=== PATIENT | male | born 1960 | race Caucasian/White ===

== ENCOUNTER 2020-07-08 08:26 | Outpatient (REF) | payer OTHER, SELFPAY ==
[2020-07-08 11:12] LABS: MANUAL DIFF FLAG NO
[2020-07-08 11:30] LABS: Basophils Percent Auto 0.5 % (0-2); Eosinophils Absolute Auto 0.2 X10*3/uL (0.0-0.4); Eosinophils Percent Auto 2.4 % (0-4); Hematocrit 46.2 % (42-52); Hemoglobin 15.6 g/dl (14.0-18.0); Imm Gran Abs Auto 0.03 X10*3/uL (0.00-0.03); Imm Gran Pct Auto 0.4 % (0.0-0.4); Lymphocytes Absolute Auto 2.2 X10*3/uL (1.2-4.9); Lymphocytes Percent Auto 29.5 % (20-40); Mean Corpuscular HGB Conc 33.8 g/dl (31.0-36.0); Mean Corpuscular Hemoglobin 29.9 pg (27.0-33.0); Mean Corpuscular Volume 88.5 fL (80-98); Mean Platelet Volume 9.9 fL (9.4-12.4); Monocytes Absolute Auto 0.5 X10*3/uL (0.1-1.2); Monocytes Percent Auto 7.2 % (2-11); Neutrophils Absolute Auto 4.5 X10*3/uL (2.0-8.3); Platelet Count 246 X10*3/uL (160-400); Red Blood Count 5.22 X10*6/uL (4.60-5.80); Red Cell Distribution Width 12.4 % (11.0-16.0); White Blood Count 7.5 X10*3/uL (4.8-10.8)
[2020-07-08 11:48] LABS: Alanine Aminotransferase 31 U/L (0-40); Albumin Level 4.6 g/dL (3.5-5.0); Alkaline Phosphatase 57 U/L (39-117); Anion Gap 18 (12-20); Aspartate Amino Transferase 28 U/L (5-37); Bilirubin Total 0.9 mg/dL (0.0-1.0); Blood Urea Nitrogen 13 mg/dL (9-16); Calcium 9.3 mg/dL (8.4-10.2); Carbon Dioxide 24 mmol/L (22-29); Chloride 99 mmol/L (96-108); Cholesterol 182 mg/dL; Estimated Glomerular Filt Rate > 60; Glucose Fasting 101 mg/dL (60-99); HDL Cholesterol 42 mg/dL; LDL Cholesterol Calculated 104 mg/dl; Potassium 4.2 mmol/l (3.3-5.1); Sodium 137 mmol/L (135-145); Total Protein 7.6 g/dL (6.5-8.0); Triglycerides 183 mg/dL; Uric Acid 7.2 mg/dL (3.4-7.0)
[2020-07-08 12:09] LABS: PSA,Total (Free>4and<10) 1.41 ng/mL (0.00-4.00)
== END 2020-07-08 08:27 | disposition home or self-care (01) ==
LOC: HO.HMGCLDS 08:26
PROVIDERS: PCP Internal Medicine; Visit Provider Internal Medicine
DX: Z00.00 Encounter for general adult medical examination without abnormal findings (principal); Z12.5 Encounter for screening for malignant neoplasm of prostate
CPT/HCPCS: 36415; 80053; 80061; 84153; 84550; 85025

== ENCOUNTER 2021-09-29 08:38 | Outpatient (REF) | payer OTHER, SELFPAY ==
[2021-09-29 11:47] LABS: MANUAL DIFF FLAG NO
[2021-09-29 11:56] LABS: Basophils Absolute Auto 0.1 X10*3/uL (0.0-0.2); Basophils Percent Auto 0.6 % (0-2); Eosinophils Absolute Auto 0.2 X10*3/uL (0.0-0.4); Eosinophils Percent Auto 1.7 % (0-4); Hematocrit 45.5 % (42.0-52.0); Hemoglobin 15.8 g/dl (14.0-18.0); Imm Gran Abs Auto 0.18 X10*3/uL (0.00-0.03); Imm Gran Pct Auto 1.6 % (0.0-0.4); Lymphocytes Absolute Auto 2.7 X10*3/uL (1.2-4.9); Mean Corpuscular HGB Conc 34.7 g/dl (31.0-36.0); Mean Corpuscular Hemoglobin 30.3 pg (27.0-33.0); Mean Corpuscular Volume 87.2 fL (80.0-98.0); Mean Platelet Volume 9.8 fL (9.4-12.4); Monocytes Absolute Auto 0.8 X10*3/uL (0.1-1.2); Monocytes Percent Auto 6.7 % (2-11); Neutrophils Absolute Auto 7.5 x10*3/uL (2.0-8.3); Neutrophils Percent Auto 65.4 % (45-73); Platelet Count 267 X10*3/uL (160-400); Red Blood Count 5.22 X10*6/uL (4.60-5.80); Red Cell Distribution Width 12.4 % (11.0-16.0); White Blood Count 11.4 X10*3/uL (4.8-10.8)
[2021-09-29 12:29] LABS: Alanine Aminotransferase 30 U/L (0-40); Albumin Level 4.7 g/dL (3.5-5.0); Alkaline Phosphatase 65 U/L (39-117); Anion Gap 16 (12-20); Aspartate Amino Transferase 22 U/L (5-37); Bilirubin Total 0.8 mg/dL (0.0-1.0); Blood Urea Nitrogen 17 mg/dL (9-16); Carbon Dioxide 26 mmol/L (22-29); Chloride 97 mmol/L (96-108); Cholesterol 216 mg/dL; Estimated Glomerular Filt Rate > 60; Glucose Fasting 155 mg/dL (60-99); HDL Cholesterol 56 mg/dL; LDL Cholesterol Calculated 127 mg/dl; Potassium 4.7 mmol/L (3.3-5.1); Sodium 134 mmol/L (135-145); Triglycerides 169 mg/dL
[2021-09-29 12:42] LABS: Prostate Specific Antigen Scr 0.95 ng/mL (<0.05-4.0)
== END 2021-09-29 08:39 | disposition home or self-care (01) ==
LOC: HO.HMGCLDS 08:38
PROVIDERS: PCP Internal Medicine; Visit Provider Internal Medicine
DX: Z00.00 Encounter for general adult medical examination without abnormal findings (principal); Z12.5 Encounter for screening for malignant neoplasm of prostate
CPT/HCPCS: 36415; 80053; 80061; 84153; 85025

== ENCOUNTER 2021-12-15 13:38 | Outpatient (REF) | payer OTHER, SELFPAY ==
--- NOTE | ~2021-12-15 | MR_ITS ---
EXAMINATION: MR CERVICAL SPINE WITHOUT CONTRAST CLINICAL INFORMATION: Neck pain. History of fall. COMPARISON: None. TECHNIQUE: MRI of the cervical spine was obtained using routine sequences without contrast. FINDINGS: VERTEBRAL BODIES AND PARASPINAL SOFT TISSUES: The marrow signal is mildly heterogeneous with regions of fatty change. There are no compression fractures. Mild anterior subluxations visible at the C3-C4 and C4-C5 levels. Slight retrosubluxation noted at the C6-C7 level. Minimal anterolisthesis also visible at the C7-T1 level. There is an intraosseous hemangioma in the T1 vertebral body. Mild leftward curvature of the lower cervical spine evident. There is marrow edema in the left posterior elements at the C4-C5 level, presumably reactive. The paraspinal soft tissues are unremarkable. The vertebral artery flow-voids are maintained. The imaged lung apices are grossly clear. CERVICOMEDULLARY JUNCTION AND VISUALIZED POSTERIOR FOSSA: The craniovertebral junction and imaged portions of the brain parenchyma appear normal. No cord signal abnormality or syrinx is seen. SPINAL LEVELS: C2-C3: Mild anterolisthesis and disc bulge without central canal stenosis or foraminal narrowing. C3-C4: Very mild disc bulge and small annular fissure with moderate left-sided facet arthropathy and moderate left foraminal encroachment. No central canal stenosis. C4-C5: Mild anterolisthesis and degenerative disc bulge with a small central disc protrusion. Moderate left-sided facet arthropathy and edema in the left articular processes. Very mild central canal stenosis. Ycxz-ex-upyeulae foraminal narrowing, more so on the left side. C5-C6: Anterior subluxation and broad-based central disc protrusion distorting the ventral cord and thecal sac. Mild facet arthropathy. Mild central canal stenosis and moderate right foraminal narrowing. C6-C7: Broad-based central disc protrusion distorting the ventral cord with posterior ligamentous thickening and gkpa-ft-vgysplds central canal stenosis. Severe left foraminal narrowing and paxt-dk-lptidjfz right foraminal encroachment. C7-T1: Mild anterolisthesis and disc bulge without central canal stenosis. Moderate left-sided facet degeneration and mild left foraminal narrowing. MR/MR cervical spine wo con IMPRESSION: Moderate left foraminal narrowing and hypertrophic facet arthropathy at the C3-C4 level. Mild anterolisthesis and moderate facet facet arthropathy with a small central disc protrusion at the C4-C5 level. Reactive edema in the left articular processes. Very mild central canal stenosis and moderate left foraminal narrowing. Broad-based central disc protrusion flattening the ventral cord at C5-C6 with mild central canal stenosis and moderate right foraminal narrowing. Broad-based central disc protrusion distorts the ventral cord at C6-C7 with gmoq-xk-louojxvh central canal stenosis and severe left foraminal narrowing.
== END 2021-12-15 13:39 | disposition home or self-care (01) ==
LOC: HO.MRI 13:38
PROVIDERS: Visit Provider Internal Medicine
DX: M54.2 Cervicalgia (principal)
CPT/HCPCS: 72141

== ENCOUNTER 2022-08-10 09:17 | Outpatient (REF) | payer OTHER, SELFPAY ==
[2022-08-10 11:38] LABS: Estimated Average Glucose 183 mg/dL
[2022-08-10 12:10] LABS: Anion Gap 17 (12-20); Blood Urea Nitrogen 13 mg/dL (9-16); Calcium 9.6 mg/dL (8.4-10.2); Carbon Dioxide 25 mmol/L (22-29); Chloride 99 mmol/L (96-108); Estimated Glomerular Filt Rate > 60; Glucose Random 138 mg/dL (60-115); Potassium 4.2 mmol/L (3.3-5.1); Sodium 137 mmol/L (135-145)
== END 2022-08-10 09:18 | disposition home or self-care (01) ==
LOC: HO.HMGCLDS 09:17
PROVIDERS: Visit Provider Internal Medicine
DX: E11.9 Type 2 diabetes mellitus without complications (principal)
CPT/HCPCS: 36415; 80048; 83036

== ENCOUNTER 2022-11-08 08:38 | Outpatient (REF) | payer OTHER, SELFPAY ==
[2022-11-08 11:13] LABS: MANUAL DIFF FLAG NO
[2022-11-08 11:32] LABS: Basophils Percent Auto 0.4 % (0-2); Eosinophils Absolute Auto 0.2 X10*3/uL (0.0-0.4); Eosinophils Percent Auto 3.2 % (0-4); Hematocrit 43.1 % (42.0-52.0); Hemoglobin 14.6 g/dl (14.0-18.0); Imm Gran Abs Auto 0.03 X10*3/uL (0.00-0.03); Imm Gran Pct Auto 0.4 % (0.0-0.4); Lymphocytes Absolute Auto 1.9 X10*3/uL (1.2-4.9); Lymphocytes Percent Auto 25.9 % (20-40); Mean Corpuscular HGB Conc 33.9 g/dl (31.0-36.0); Mean Corpuscular Hemoglobin 29.9 pg (27.0-33.0); Mean Corpuscular Volume 88.1 fL (80.0-98.0); Monocytes Absolute Auto 0.5 X10*3/uL (0.1-1.2); Neutrophils Absolute Auto 4.7 x10*3/uL (2.0-8.3); Neutrophils Percent Auto 63.1 % (45-73); Platelet Count 243 X10*3/uL (160-400); Red Blood Count 4.89 X10*6/uL (4.60-5.80); Red Cell Distribution Width 12.5 % (11.0-16.0); White Blood Count 7.4 X10*3/uL (4.8-10.8)
[2022-11-08 12:18] LABS: Estimated Average Glucose 166 mg/dL; Hemoglobin A1c % 7.4 %
[2022-11-08 12:55] LABS: Creatinine Urine 158.35 mg/dL; Microalbum/Creatinine Ratio Ur 25.8 ug/mg cr
[2022-11-08 13:02] LABS: Alanine Aminotransferase 35 U/L (0-40); Albumin Level 4.4 g/dL (3.5-5.0); Alkaline Phosphatase 56 U/L (39-117); Anion Gap 15 (12-20); Aspartate Amino Transferase 34 U/L (5-37); Blood Urea Nitrogen 15 mg/dL (9-16); Calcium 9.2 mg/dL (8.4-10.2); Carbon Dioxide 26 mmol/L (22-29); Chloride 101 mmol/L (96-108); Cholesterol 172 mg/dL; Estimated Glomerular Filt Rate > 60; Glucose Fasting 139 mg/dL (60-99); HDL Cholesterol 36 mg/dL; LDL Cholesterol Calculated 89 mg/dl; Potassium 4.1 mmol/L (3.3-5.1); Prostate Specific Antigen Scr 1.28 ng/mL (<0.05-4.0); Sodium 138 mmol/L (135-145); Total Protein 7.1 g/dL (6.5-8.0); Triglycerides 237 mg/dL
== END 2022-11-08 08:39 | disposition home or self-care (01) ==
LOC: HO.HMGCLDS 08:38
PROVIDERS: PCP Internal Medicine; Visit Provider Internal Medicine
DX: Z00.00 Encounter for general adult medical examination without abnormal findings (principal); Z12.5 Encounter for screening for malignant neoplasm of prostate; E11.9 Type 2 diabetes mellitus without complications
CPT/HCPCS: 36415; 80053; 80061; 82043; 83036; 84153; 85025

== ENCOUNTER 2023-03-14 09:29 | Outpatient (REF) | payer OTHER, SELFPAY ==
[2023-03-14 10:34] LABS: Estimated Average Glucose 154 mg/dL
[2023-03-14 10:40] LABS: Anion Gap 13 (12-20); Blood Urea Nitrogen 14 mg/dL (9-16); Calcium 9.6 mg/dL (8.4-10.2); Carbon Dioxide 27 mmol/L (22-29); Chloride 102 mmol/L (96-108); Estimated Glomerular Filt Rate > 60; Glucose Random 126 mg/dL (60-115); Potassium 4.3 mmol/L (3.3-5.1); Sodium 138 mmol/L (135-145)
[2023-03-14 10:43] LABS: Uric Acid 4.6 mg/dL (3.4-7.0)
== END 2023-03-14 09:30 | disposition home or self-care (01) ==
LOC: HO.10HDL 09:29
PROVIDERS: Visit Provider Internal Medicine
DX: E11.9 Type 2 diabetes mellitus without complications (principal); I10 Essential (primary) hypertension; M10.9 Gout, unspecified
CPT/HCPCS: 36415; 80048; 83036; 84550

== ENCOUNTER → 2023-03-23 07:39 | Outpatient (REF) | payer OTHER, SELFPAY ==
--- NOTE | 2023-03-23 07:42 | CA_ITS ---
Acquisition Time: 2023-03-23 08:11:15 Total Exercise Time: 00:06:00 Test Indications: Dyspnea CP Medications: Protocol: TAMEKA Max HR: 150 BPM 95% of Pred: 157 BPM Max BP: 168/084 mmHG Max Work Load: 7.0 METS PT EXERCISED ON STD TAMEKA PROTOCOL FOR 6MIN THRU STAGE 2. MAX HR 151-96%MAX. NO CP OR SOB. NO ARRHYTHMIAS. NON SPECIFIC T-WAVE CHANGES IN LEAD 3V5-6. CLINICALLY NEG TEST. Referred By: Blayne Mills Overread By: KIRA MILLS MD
== END ==
LOC: HO.CARD 07:39
PROVIDERS: PCP Internal Medicine; Visit Provider Internal Medicine
DX: R06.09 Other forms of dyspnea (principal)
CPT/HCPCS: 93017

== ENCOUNTER 2023-08-25 09:16 | Outpatient (REF) | payer OTHER, SELFPAY ==
[2023-08-25 10:17] LABS: MANUAL DIFF FLAG NO
[2023-08-25 10:23] LABS: Basophils Percent Auto 0.3 % (0-2); Eosinophils Absolute Auto 0.2 X10*3/uL (0.0-0.4); Eosinophils Percent Auto 2.9 % (0-4); Hematocrit 42.5 % (42.0-52.0); Hemoglobin 14.8 g/dl (14.0-18.0); Imm Gran Abs Auto 0.04 X10*3/uL (0.00-0.03); Imm Gran Pct Auto 0.5 % (0.0-0.4); Lymphocytes Absolute Auto 2.3 X10*3/uL (1.2-4.9); Lymphocytes Percent Auto 30.6 % (20-40); Mean Corpuscular HGB Conc 34.8 g/dl (31.0-36.0); Mean Corpuscular Hemoglobin 29.9 pg (27.0-33.0); Mean Corpuscular Volume 85.9 fL (80.0-98.0); Mean Platelet Volume 9.5 fL (9.4-12.4); Monocytes Absolute Auto 0.5 X10*3/uL (0.1-1.2); Monocytes Percent Auto 6.1 % (2-11); Neutrophils Absolute Auto 4.5 x10*3/uL (2.0-8.3); Neutrophils Percent Auto 59.6 % (45-73); Platelet Count 238 X10*3/uL (160-400); Red Blood Count 4.95 X10*6/uL (4.60-5.80); Red Cell Distribution Width 12.6 % (11.0-16.0); White Blood Count 7.5 X10*3/uL (4.8-10.8)
[2023-08-25 10:41] LABS: Estimated Average Glucose 160 mg/dL; Hemoglobin A1c % 7.2 % (<6.0)
[2023-08-25 10:59] LABS: Alanine Aminotransferase 36 U/L (0-40); Albumin Level 4.5 g/dL (3.5-5.0); Alkaline Phosphatase 57 U/L (39-117); Anion Gap 16 (12-20); Aspartate Amino Transferase 31 U/L (5-37); Bilirubin Total 0.8 mg/dL (0.0-1.0); Blood Urea Nitrogen 14 mg/dL (9-16); Calcium 9.4 mg/dL (8.4-10.2); Carbon Dioxide 26 mmol/L (22-29); Chloride 100 mmol/L (96-108); Estimated Glomerular Filt Rate > 60; Glucose Random 140 mg/dL (60-115); Lipase 28 U/L (8-78); Potassium 3.8 mmol/L (3.3-5.1); Sodium 138 mmol/L (135-145); Total Protein 7.6 g/dL (6.5-8.0)
== END 2023-08-25 09:17 | disposition home or self-care (01) ==
LOC: HO.HMGCLDS 09:16
PROVIDERS: PCP Internal Medicine; Visit Provider Internal Medicine
DX: I10 Essential (primary) hypertension (principal); E11.9 Type 2 diabetes mellitus without complications; K21.9 Gastro-esophageal reflux disease without esophagitis; R10.13 Epigastric pain
CPT/HCPCS: 36415; 80053; 83036; 83690; 85025; 86140

== ENCOUNTER 2023-08-28 10:16 | Outpatient (REF) | payer OTHER, SELFPAY ==
--- NOTE | ~2023-08-28 | FL_ITS ---
EXAMINATION: XR FLUOROSCOPY UPPER GI WITH AIR CLINICAL INFORMATION: Epigastric pain; GERD. COMPARISON: None TECHNIQUE: Fluoroscopic air contrast upper GI examination was performed utilizing standard techniques with thin and thick barium and effervescent granules. Numerous spot images were obtained. FINDINGS: Patient is status post ACDF of C6-T1 with anterior plate and screws and disc prostheses. No gross hardware abnormality on fluoroscopy. No definite indentation upon the upper esophagus. Dual and single contrast images of the esophagus demonstrate normal caliber, contour, and mucosal pattern. No evidence of stricture, mass, or ulcerations identified. Primary esophageal peristalsis was normal. Mild disorganized esophageal peristalsis seen in the distal esophagus. A nonobstructing Schatzki's ring is present. A small to moderate type I hiatal hernia is present. No significant gastroesophageal reflux was seen during the course of the examination and on reflux views. Dual contrast and single contrast images of the stomach demonstrated normal contour and mucosal pattern. A few rounded filling defects in the proximal body are present, likely hyperplastic polyps. No masses or gross ulcerations. No rugal fold thickening. Contrast freely passed into the gastric antrum and duodenal bulb without delay. Single and air-contrast images of the duodenal bulb demonstrate no abnormality. The duodenal sweep has a normal appearance, course, and mucosal fold appearance. No malrotation. The imaged proximal jejunum has a normal fold pattern and caliber. FLUOROSCOPY TIME: 3 minutes 25 seconds Number of Spot Images: 15 Number of Cine: 8 DOSE AREA PRODUCT: 2561 uGy-m2 (microgray-meter squared) FL/FL upper GI series IMPRESSION: 1. Status post ACDF at C6-T1. No complication evident. 2. Mild disorganized esophageal peristalsis in the distal esophagus. No mucosal abnormality. 3. Nonobstructing, wide open Schatzki's ring. 4. Small to moderate type I hiatal hernia. 5. A few small hyperplastic polyps suspected in the proximal gastric body. 6. No definite gastroesophageal reflux visualized during the course of this examination. This procedure was performed by Samson Jaramillo PA-C, and supervised by Dr. Castro
== END 2023-08-28 10:17 | disposition home or self-care (01) ==
LOC: HO.XRAY 10:16
PROVIDERS: PCP Internal Medicine; Visit Provider Internal Medicine
DX: K21.9 Gastro-esophageal reflux disease without esophagitis (principal); R10.84 Generalized abdominal pain
CPT/HCPCS: 74240

== ENCOUNTER → 2023-08-28 10:23 | Outpatient (BNV) | payer OTHER, SELFPAY | PROVIDERS: PCP Internal Medicine; Visit Provider Physician Assistant Surgical | DX: R10.13 Epigastric pain (principal); K21.9 Gastro-esophageal reflux disease without esophagitis | CPT/HCPCS: 74246 ==

== ENCOUNTER 2024-07-11 11:38 | Outpatient (REF) | payer OTHER, SELFPAY ==
--- NOTE | ~2024-07-11 | XR_ITS ---
EXAMINATION: XR PELVIS 1-2 VIEWS HISTORY: BACK PAIN. ASSESS R SCI JOINT COMPARISON: There are no prior studies for comparison. FINDINGS: A single AP view of the pelvis is submitted. Osseous mineralization is normal. There is no fracture or dislocation. There is mild narrowing of both hips. The sacroiliac joints are maintained. The soft tissues are unremarkable. XR/XR pelvis 1-2V IMPRESSION: Mild narrowing of both hip joints. Electronically signed by: Cleve Ramirez MD 07/16/2024 03:11 PM EDGARD GERONIMO
[2024-07-11 12:31] LABS: MANUAL DIFF FLAG NO
[2024-07-11 12:36] LABS: Basophils Absolute Auto 0.1 X10*3/uL (0.0-0.2); Basophils Percent Auto 0.6 % (0-2); Eosinophils Absolute Auto 0.2 X10*3/uL (0.0-0.4); Eosinophils Percent Auto 2.1 % (0-4); Hematocrit 43.7 % (42.0-52.0); Hemoglobin 15.5 g/dl (14.0-18.0); Imm Gran Abs Auto 0.03 X10*3/uL (0.00-0.03); Imm Gran Pct Auto 0.3 % (0.0-0.4); Lymphocytes Absolute Auto 1.8 X10*3/uL (1.2-4.9); Lymphocytes Percent Auto 19.9 % (20-40); Mean Corpuscular HGB Conc 35.5 g/dl (31.0-36.0); Mean Corpuscular Hemoglobin 30.5 pg (27.0-33.0); Mean Platelet Volume 9.4 fL (9.4-12.4); Monocytes Absolute Auto 0.6 X10*3/uL (0.1-1.2); Monocytes Percent Auto 6.3 % (2-11); Neutrophils Absolute Auto 6.4 x10*3/uL (2.0-8.3); Neutrophils Percent Auto 70.8 % (45-73); Platelet Count 218 X10*3/uL (160-400); Red Blood Count 5.08 X10*6/uL (4.60-5.80); Red Cell Distribution Width 12.1 % (11.0-16.0)
[2024-07-11 13:07] LABS: Estimated Average Glucose 197 mg/dL; Hemoglobin A1C 278.9165 umol/L; Hemoglobin A1c % 8.5 % (<6.0); Total Hemoglobin (HGBA1C) 3993.4062 umol/L
[2024-07-11 13:14] LABS: Erythrocyte Sedimentation Rate 7 MM/HR (0-15)
[2024-07-11 13:53] LABS: Anion Gap 15 (12-20); Blood Urea Nitrogen 17 mg/dL (9-16); C Reactive Protein 0.47 mg/dL (< or = 0.50); Calcium 10.1 mg/dL (8.4-10.2); Carbon Dioxide 26 mmol/L (22-29); Chloride 100 mmol/L (96-108); Estimated Glomerular Filt Rate > 60; Glucose Random 268 mg/dL (60-115); Potassium 4.2 mmol/L (3.3-5.1); Sodium 137 mmol/L (135-145)
== END 2024-07-11 11:39 | disposition home or self-care (01) ==
LOC: HO.XRAY 11:38
PROVIDERS: PCP Internal Medicine; Visit Provider Internal Medicine
DX: M54.9 Dorsalgia, unspecified (principal); E11.9 Type 2 diabetes mellitus without complications
CPT/HCPCS: 36415; 72170; 80048; 82550; 83036; 85025; 85652; 86140

== ENCOUNTER → 2024-07-11 11:49 | Outpatient (BNV) | payer OTHER, SELFPAY | PROVIDERS: PCP Internal Medicine; Visit Provider Radiology Diagnostic Radiology | DX: M54.50 Low back pain, unspecified (principal) | CPT/HCPCS: 72170 ==

== ENCOUNTER 2024-12-17 09:51 | Outpatient (AMB) | payer OTHER, SELFPAY ==
--- NOTE | 2024-12-17 10:03 | A.OFFPC_ITS ---
Vital Signs 12/17/24 10:16 BP 134/94 H Pulse 96 Pulse Oximetry (%) 96 Intake Visit Reasons: Hospital F/U Allergies Iodinated Contrast Media [IV Dye, Iodine Containing] Adverse Reaction (Mild, Unverified 03/19/20 15:33) FELT WOOZY ,HAD PROHANCE INJECTION Medication List - Last Reconciled 12/17/24 by RANCHO Gomez allopurinol 200 mg (2 x 100 mg) PO DAILY amlodipine 5 mg PO DAILY atorvastatin 40 mg PO BEDTIME cholecalciferol (vitamin D3) 125 mcg PO DAILY losartan 100 mg (2 x 50 mg) PO DAILY metformin 1,000 mg (2 x 500 mg) PO DAILY omeprazole 20 mg PO DAILY HPI HPI Comments History of Present Illness Details 64-year-old male with history of hyperte nsion, hyperlipidemia, type 2 diabetes, diabetic polyneuropathy presents to the office today for hospital discharge follow-up. Discharge medications reviewed and reconciled. Discharge summary, CT scans, labs reviewed. Echocardiogram reviewed. The patient was admitted to [facility] from 12/05-12/07 after experiencing a syncopal episode while at work. 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 He had been drinking some water but not enough. He then passed out with reported loss of consciousness. Upon regaining consciousness, was disoriented, vomiting. Upon evaluation by EMS, no hypoglycemia, he was actually hyperglycemic. He was transferred via EMS to [facility] where IV fluids were initiated. Initial labs revealed an LUPE with creatinine 1.17. Glucose 287. CT of the head was negative for any acute intracranial abnormality. CTA of the head and neck did reveal moderate to marked narrowing of the right vertebral artery origin as well as narrowing of the right V4 segment but no large vessel occlusion. Lipid panel was checked showing LDL of 62. Baby aspirin was initiated and his simvastatin was changed to atorvastatin 40 mg daily. Hemoglobin A1c was also checked and was elevated at 9.9%. He was recommended to initiate Lantus 6 units daily but instead doubled his metformin to 1000 mg daily when he was discharged. He is requesting a glucometer. Blood pressures were significantly elevated and losartan was increased to 100mg daily though he did remain slightly hypertensive on discharge. Renal function did return to baseline with IV fluids. He was discharged home. ROS: General: No fevers, malaise, unintentional weight loss HEENT: No blurred vision, diplopia. No sore throat, nasal congestion, rhinorrhea, sinus pain, ear pain Cardiovascular: No chest pain, palpitations, or leg edema Respiratory: No shortness of breath, wheezing, cough GI: No abdominal pain, nausea, vomiting, diarrhea, constipation, melena, hematochezia : No dysuria, hematuria, increased urinary frequency, decreased urinary output MSK: No myalgia, back pain Neuro: No headaches, weakness, paresthesias Skin: No rashes or lesions EXAM: Constitutional - Awake and Alert, No apparent distress Eyes - PERRL Cardiovascular - S1S2, RRR, No edema Respiratory - Normal lung expansion, Normal respiratory effort, No respiratory distress, CTA bilaterally Extremities - no calf tenderness bilaterally, no swelling Skin - Warm/Dry Neurological - Alert & oriented x3 Psychological - Appropriate affect [facility] Medical History (Updated 12/17/24 @ 11:23 by RANCHO Gomez) 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 1. Little interest or pleasure in doing things: not at all 2. Feeling down, depressed, or hopeless: not at all 3. Trouble falling or staying asleep, or sleeping too much: not at all 4. Feeling tired or having little energy: not at all 5. Poor appetite or overeating: not at all 6. Feeling bad about yourself - or that you are a failure or have let yourself or your family down: not at all 7. Trouble concentrating on things, such as reading the newspaper or watching television: not at all 8. Moving or speaking so slowly that other people could have noticed. Or the opposite - being so fidgety or restless that you have been moving around a lot more than usual: not at all 9. Thoughts that you would be better off or of hurting yourself in some way: not at all Total score: 0 Source: Developed by Drs. Cleve Garcia, Russ Bhardwaj and colleagues, with an educational kev from [employer]. Thrive Questionnaire Date Thrive assessed: 12/17/24 I am a: Patient What is your living situation today?: I have a steady place to live Within the past 12 months, did the food you bought not last and you didn't have the money to get more?: Never true Within the past 12 months, did you worry whether your food would run out before you got money to buy more?: Never true Do you have trouble paying for medicines?: No Do you have trouble getting transportation to medical appointments?: No Do you have trouble paying your heating and electricity bill?: No Do you have trouble taking care of your child, family member or friend?: No Do you have trouble with day-to-day activities such as bathing, preparing meals, shopping, managing finances, etc.?: No Are you currently unemployed and looking for a job?: No Are you interested in more education?: No Please select the resources that you would like help with: None THRIVE Score: 0 EDIL-7 AMB Questionnaire EDIL-7 Date EDIL - 7 assessed: 12/17/24 Feeling nervous, anxious, or on edge: 0 = Not at all Not being able to stop or control worryin = Not at all Worrying too much about different things: 0 = Not at all Trouble relaxin = Not at all Being so restless that it is hard to sit still: 0 = Not at all Becoming easily annoyed or irritable: 0 = Not at all Feeling afraid as if something awful might happen: 0 = Not at all Total EDIL-7 score (0-4 normal; 5-9 mild; 10-14 moderate; 15-21 severe): 0 Source: Developed by Drs. Cleve Garcia, Russ Bhardwaj and colleagues, with an educational kev from [employer]. Physical exam (Primary Care) Vital Signs: Last Vital Signs Pulse 96 12/17/24 10:16 BP 134/94 H 12/17/24 10:16 Pulse Ox 96 12/17/24 10:16 Coding Level of Care Code New Pt Level 4 (92283) Diagnoses Syncope R55 LUPE (acute kidney injury) N17.9 Peripheral vascular disease in diabetes mellitus E11.51 Hyperlipidemia E78.5 Hypertension I10 Assessment & Plan Assessment & Plan (1) Syncope: Code(s): R55 - Syncope and collapse Category: Medical Plan: Related to dehydration. Advised to increase fluid intake especially with high heat and exercise. Discharge notes reviewed. No intracranial abnormalities. Echocardiogram was reassuring. Labs revealed an LUPE. Acute issue has resolved and he is cleared to return to work (2) LUPE (acute kidney injury): Code(s): N17.9 - Acute kidney failure, unspecified Category: Medical Plan: Likely prerenal secondary to hypovolemia from poor fluid intake. Resolved (3) Peripheral vascular disease in diabetes mellitus: Code(s): E11.51 - Type 2 diabetes mellitus with diabetic peripheral angiopathy without gangrene Category: Medical Plan: Continue baby aspirin and high-potency statin. We will continue monitoring. Diabetes is uncontrolled with A1c of 9.9%. Continue increased dose of metformin 1000 mg daily. Work to improve diabetic diet and continue with exercise. (4) Hyperlipidemia: Code(s): E78.5 - Hyperlipidemia, unspecified Category: Medical Plan: Continue atorvastatin 40 mg daily. Will assess lipid panel at upcoming visit (5) Hypertension: Code(s): I10 - Essential (primary) hypertension Category: Medical Plan: Remains uncontrolled in the office today at 134/94. Add amlodipine 5 mg daily and continue losartan 100 mg daily. Plan Follow-up in 3 months Medications: New amlodipine 5 mg PO DAILY 90 tabs 1RF allopurinol 200 mg (2 x 100 mg) PO DAILY 180 tabs 1RF omeprazole 20 mg PO DAILY 90 caps 1RF atorvastatin 40 mg PO BEDTIME 90 tabs 1RF aspirin 81 mg PO DAILY 90 tabs 1RF losartan 100 mg (2 x 50 mg) PO DAILY 180 tabs 1RF metformin 1,000 mg (2 x 500 mg) PO DAILY 180 tabs 1RF cholecalciferol (vitamin D3) 125 mcg PO DAILY 90 caps 1RF
[2024-12-17 10:16] VITALS: BP 134/94; PULSE 96; O2SAT 96
== END 2024-12-17 10:26 | disposition home or self-care (01) ==
LOC: HO.HMCHD 09:52
PROVIDERS: PCP Internal Medicine; Visit Provider Physician Assistant
DX: R55 Syncope and collapse (principal); Z04.2 Encounter for examination and observation following work accident; E11.51 Type 2 diabetes mellitus with diabetic peripheral angiopathy without gangrene; N17.9 Acute kidney failure, unspecified; E78.5 Hyperlipidemia, unspecified; I10 Essential (primary) hypertension

== ENCOUNTER → 2024-12-17 09:51 | Outpatient (BNVA) | payer OTHER, SELFPAY | PROVIDERS: PCP Internal Medicine; Visit Provider Physician Assistant | DX: E11.51 Type 2 diabetes mellitus with diabetic peripheral angiopathy without gangrene (principal); N17.9 Acute kidney failure, unspecified; E78.5 Hyperlipidemia, unspecified; I10 Essential (primary) hypertension | CPT/HCPCS: 99212 ==

== ENCOUNTER 2024-12-27 14:16 | Outpatient (AMB) | payer MEDICARE, OTHER, SELFPAY ==
[2024-12-27 14:36] VITALS: BP 130/72; PULSE 102; TEMP 37; O2SAT 98; BMI 27.1
--- NOTE | 2024-12-27 14:36 | A.OFFPC_ITS ---
Vital Signs 12/27/24 14:36 Height 5 ft 10 in Weight 189 lb BMI 27.1 BP 130/72 Blood Pressure Location Rt brachial Position Sitting Pulse 102 H Pulse Source Pulse Oximeter Temp 98.6 F Temp Source Axillary Pulse Oximetry (%) 98 Oxygen Delivery Method Room Air Intake Visit Reasons: Glucose Review Accompanied by: Self / Same As Patient Allergies Iodinated Contrast Media (IV Dye, Iodine Containing) Adverse Reaction (Mild, Verified 12/27/24 14:38) FELT WOOZY ,HAD PROHANCE INJECTION Tobacco use date assessed: 12/27/24 Fall risk assessment: No Falls in past year Last assessed Fall Risk: 12/27/24 Dental Screening Dental Screen Date: 12/27/24 Did you have a dental visit in the last 12 months?: Yes Did you have a dental problem in the last 6 months where you did not have access to dental care?: No HPI HPI Comments History of Present Illness Details 64-year-old male with history of hyperte nsion, hyperlipidemia, type 2 diabetes, diabetic polyneuropathy presenting for diabetic follow up He was seen 10 days ago by my colleague for hospital follow up. Part of the discussion focused on uncontrolled diabetes He had increased his metformin 500mg daily to metformin 500mg twice daily His fasting blood glucose is consistently still 200-230 Plan to max metformin today to 1000mg twice daily. He has appt scheduled for A1C/diabetic follow up in mar. He will call sooner if he remains hyperglycemia ROS: see HPI PHYSICAL EXAM: GENERAL: Alert and oriented x 3. NAD EYES: EOMI. Anicteric. HENT: Moist mucous membranes. No scleral icterus. No cervical lymphadenopathy. LUNGS: Clear to auscultation bilaterally. CARDIOVASCULAR: Regular rate and rhythm. No murmur. No JVD. ABDOMEN: Soft, non-tender +bs EXTREMITIES: No edema. Non-tender. SKIN: No rashes or lesions. Warm. NEUROLOGIC: No focal neurological deficits. CN II-XII grossly intact PSYCHIATRIC: Cooperative. 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 Diabetic polyneuropathy Gout Iron deficiency anemia Congenital defect History of diverticulitis Peripheral vascular disease in diabetes mellitus Type 2 diabetes mellitus Hyperlipidemia Hypertension Surgical History History of colonoscopy (~03/20/24) Family History Father Heart disease Mother Skin cancer Social History Housing: House Patient Tobacco Use Status: Never used Tobacco e-Cigarette/Vaping Use: Never Used service: No Current occupational status: employed and retired Current occupational exposures/hazards: No Cognitive needs: No Hearing needs: No Vision needs: No Questionnaire PHQ-9 Over the last 2 weeks, how often have you been bothered by any of the following problems? 1. Little interest or pleasure in doing things: not at all 2. Feeling down, depressed, or hopeless: not at all 3. Trouble falling or staying asleep, or sleeping too much: not at all 4. Feeling tired or having little energy: not at all 5. Poor appetite or overeating: not at all 6. Feeling bad about yourself - or that you are a failure or have let yourself or your family down: not at all 7. Trouble concentrating on things, such as reading the newspaper or watching television: not at all 8. Moving or speaking so slowly that other people could have noticed. Or the opposite - being so fidgety or restless that you have been moving around a lot more than usual: not at all 9. Thoughts that you would be better off or of hurting yourself in some way: not at all Total score: 0 Depression Screening Interpretation: Negative Depression Screening Done: Yes 29802 - PHQ-9 Billing: Yes Source: Developed by Drs. Cleve Garcia, May Turner, Russ Romo and colleagues, with an educational kev from [employer]. Thrive Questionnaire Date Thrive assessed: 12/27/24 I am a: Patient Within the past 12 months, did the food you bought not last and you didn't have the money to get more?: Never true Within the past 12 months, did you worry whether your food would run out before you got money to buy more?: Never true Do you have trouble paying for medicines?: No Do you have trouble getting transportation to medical appointments?: No Do you have trouble paying your heating and electricity bill?: No Do you have trouble taking care of your child, family member or friend?: No Do you have trouble with day-to-day activities such as bathing, preparing meals, shopping, managing finances, etc.?: No Are you currently unemployed and looking for a job?: No Are you interested in more education?: No THRIVE Score: 0 AUDIT C Alcohol Use Questionnaire (AUDIT-C) 1. How often do you have a drink containing alcohol?: Monthly or less 2. How many drinks containing alcohol do you have on a typical day when you are drinking?: 1 or 2 3. How often do you have six or more drinks on one occasion?: Less than monthly Total Score: 2 EDIL-7 AMB Questionnaire EDIL-7 Date EDIL - 7 assessed: 12/27/24 Feeling nervous, anxious, or on edge: 0 = Not at all Not being able to stop or control worryin = Not at all Worrying too much about different things: 0 = Not at all Trouble relaxin = Not at all Being so restless that it is hard to sit still: 0 = Not at all Becoming easily annoyed or irritable: 0 = Not at all Feeling afraid as if something awful might happen: 0 = Not at all Total EDIL-7 score (0-4 normal; 5-9 mild; 10-14 moderate; 15-21 severe): 0 Source: Developed by Drs. Cleve Garcia, May Turner, Russ Romo and colleagues, with an educational kev from [employer]. Physical exam (Primary Care) Vital Signs: Last Vital Signs Temp 98.6 F 12/27/24 14:36 Pulse 102 H 12/27/24 14:36 BP 130/72 12/27/24 14:36 Pulse Ox 98 12/27/24 14:36 Oxygen Delivery Method Room Air 12/27/24 14:36 BMI result Body Mass Index 27.1 Tobacco/Smoking Status: Tobacco use Status Tobacco use date assessed 12/27/24 12/27/24 14:42 Patient Tobacco Use Status Never used Tobacco 12/27/24 14:42 e-Cigarette/Vaping Use Never Used 12/27/24 14:42 PHQ-9: PHQ-9 Score PHQ-9: Total score 0 12/27/24 15:01 Depression Screening Interpretation: Negative Thrive Assessment: Date of Thrive Assessment Date Thrive assessed 12/27/24 12/27/24 14:42 Coding Level of Care Code Est Pt Level 4 (92876) Diagnoses Type 2 diabetes mellitus with hyperglycemia, without long-term current use of insulin E11.65 Diabetes mellitus senior living insulin use: without exterminator helper use Diabetes mellitus complication status: with hyperglycemia Additional Codes PHQ-9 - 43975 - PHQ-9 Billing: Yes ([id number]) Assessment & Plan Assessment & Plan (1) Type 2 diabetes mellitus: Code(s): E11.9 - Type 2 diabetes mellitus without complications Category: Medical Qualifiers: Diabetes mellitus exterminator helper insulin use: without exterminator helper use Diabetes mellitus complication status: with hyperglycemia Qualified Code(s): E11.65 - Type 2 diabetes mellitus with hyperglycemia Plan DM still uncontrolled Increase metformin to 1000mg twice daily see HPI Orders: Orders Glutamic acid decarboxylase Ab 2 Months E11.9 - Type 2 diabetes mellitus without complications Medications: New metformin ER (Glucophage XR) 1,000 mg (2 x 500 mg) PO BID 360 tabs 3RF
--- OUTSIDE RECORDS SUMMARY | 2024-12-27 14:45 | XMS_ITS | Patient Health Record ---
Author Organization [facility] Address [address] [place] [id number] Care Team Providers Care Industrial Welder Name Role Phone Cleve Michel Unavailable [phone] Reason For Referral No Information Plan Of Treatment No Information
== END 2024-12-27 15:34 | disposition home or self-care (01) ==
PROVIDERS: PCP Internal Medicine; Visit Provider Internal Medicine
DX: E11.65 Type 2 diabetes mellitus with hyperglycemia (principal)

== ENCOUNTER → 2024-12-27 14:16 | Outpatient (BNVA) | payer OTHER, SELFPAY | PROVIDERS: PCP Internal Medicine; Visit Provider Internal Medicine | DX: E11.65 Type 2 diabetes mellitus with hyperglycemia (principal); E11.42 Type 2 diabetes mellitus with diabetic polyneuropathy; I10 Essential (primary) hypertension; E78.5 Hyperlipidemia, unspecified; Z79.84 Long term (current) use of oral hypoglycemic drugs; Z13.30 Encounter for screening examination for mental health and behavioral disorders, unspecified; Z13.31 Encounter for screening for depression | CPT/HCPCS: 96127; 99212 ==

== ENCOUNTER 2025-03-25 09:06 | Outpatient (AMB) | payer MEDICARE, OTHER, SELFPAY ==
--- NOTE | 2025-03-25 09:30 | MHC.PC.OV ---
Vital Signs 03/25/25 09:36 03/25/25 09:52 Height 5 ft 10 in Weight 88.904 kg BMI 28.1 BP 146/80 H 136/74 Respiration 14 Pulse 90 Pulse Source Pulse Oximeter Temp 98.5 F Temp Source Temporal Artery Scan Pulse Oximetry (%) 98 Oxygen Delivery Method Room Air Intake Visit Reasons: 3 Month F/U Wearing Apparel Folder Required: No Accompanied by: Self / Same As Patient Allergies Iodinated Contrast Media (IV Dye, Iodine Containing) Adverse Reaction (Mild, Verified 03/25/25 09:31) FELT WOOZY ,HAD PROHANCE INJECTION Medication List - Last Reconciled 03/25/25 by RANCHO Gomez allopurinol 200 mg (2 x 100 mg) PO DAILY amlodipine 5 mg PO DAILY aspirin 81 mg PO DAILY atorvastatin 40 mg PO BEDTIME blood sugar diagnostic (FreeStyle Lite Strips) Test fasting sugar daily blood-glucose meter (FreeStyle Lite Meter kit) Test fasting sugar daily cholecalciferol (vitamin D3) 125 mcg PO DAILY glipizide ER 10 mg PO DAILY lancets (FreeStyle Lancets) Test fasting sugar daily losartan 100 mg PO DAILY magnesium 200 mg PO DAILY metformin ER (Glucophage XR) 1,000 mg (2 x 500 mg) PO BID omeprazole 20 mg PO DAILY Tobacco use date assessed: 12/27/24 Dental Screening Dental Screen Date: 12/27/24 HPI HPI Comments History of Present Illness Details 64-year-old male with history of 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 Type 2 diabetes-due for hemoglobin A1c, last 8.5%. Fasting glucose levels much improved ranging 135 -165. Compliant with glipizide 10 mg ER daily, metformin 1000 mg ER twice daily. Eye exam is up-to-date. Has made significant changes to diet Hypertension-on recheck, blood pressure 136/74. On losartan 100 mg daily, amlodipine 5 mg daily Hyperlipidemia-on atorvastatin 40 mg daily due for lipid profile Peripheral vascular disease-no edema or pain Peripheral neuropathy-related to type 2 diabetes. Bilateral toes, worse at night but not overly bothersome Concerns: Chronic low back pain- h/o microdiscectomy last was 2012, unsure of level. Has appt wiht Dr. Payton this year but was told it was not spine or disc. Feels a lump/like a knot. Did PT several years ago, which did help. Looking for new referral. 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 Will take Aleve if needed. 4/10 pain intermittently, worst 6/10. No radiation, paresthesias, bowel/bladder dysfunction. MRI lumbar spine 10/2024 impression: Multilevel changes of lumbar spondylosis resulting in multilevel moderate to severe foraminal narrowing extending from L2-S1 levels. Postsurgical changes at L4-L5 and L5-S1 related to prior hemilaminectomy. No evidence of high-grade central canal stenosis. Health Maintenance: Last colonoscopy 03/2024 with 10 year follow-up Due for PSA ROS: see hpi EXAM: Constitutional - Awake and Alert, No apparent distress Eyes - PERRL Cardiovascular - S1S2, RRR, No edema Respiratory - Normal lung expansion, Normal respiratory effort, No respiratory distress, CTA bilaterally Extremities - no calf tenderness bilaterally, no swelling Skin - Warm/Dry Neurological - Alert & oriented x3 Psychological - Appropriate affect [facility] Medical History (Updated 03/25/25 @ 10:07 by RANCHO Gomez) LUPE (acute kidney injury) Chronic low back pain Squamous cell carcinoma (SCC) of lower eyelid of left eye Diabetic polyneuropathy Gout Iron deficiency anemia Congenital defect History of diverticulitis Peripheral vascular disease in diabetes mellitus Type 2 diabetes mellitus Hyperlipidemia Hypertension Surgical History History of colonoscopy (~03/20/24) Family History Father Heart disease Mother Skin cancer Social History Housing: House Patient Tobacco Use Status: Never used Tobacco e-Cigarette/Vaping Use: Never Used service: No Current occupational status: employed and retired Current occupational exposures/hazards: No Cognitive needs: No Hearing needs: No Vision needs: No Questionnaire Thrive Questionnaire Date Thrive assessed: 12/27/24 EDIL-7 AMB Questionnaire EDIL-7 Date EDIL - 7 assessed: 12/27/24 Source: Developed by DrsSusi Garcia, May Turner, Russ Romo and colleagues, with an educational kev from [employer]. Physical exam (Primary Care) Vital Signs: Last Vital Signs Temp 98.5 F 03/25/25 09:36 Pulse 90 03/25/25 09:36 Resp 14 03/25/25 09:36 BP 136/74 03/25/25 09:52 Pulse Ox 98 03/25/25 09:36 Oxygen Delivery Method Room Air 03/25/25 09:36 BMI result Body Mass Index 28.1 Tobacco/Smoking Status: Tobacco use Status Tobacco use date assessed 12/27/24 03/25/25 09:33 Patient Tobacco Use Status Never used Tobacco 03/25/25 09:33 e-Cigarette/Vaping Use Never Used 03/25/25 09:33 Thrive Assessment: Date of Thrive Assessment Date Thrive assessed 12/27/24 03/25/25 09:33 Coding Level of Care Code Est Pt Level 4 (42381) Complex EM visit Add On G2211 Diagnoses Hypertension I10 Peripheral vascular disease in diabetes mellitus E11.51 Chronic low back pain M54.50; G89.29 Hyperlipidemia E78.5 Assessment & Plan Assessment & Plan (1) Hypertension: Code(s): I10 - Essential (primary) hypertension Category: Medical Plan: Controlled on recheck. Continue losartan 100 mg daily, amlodipine 5 mg daily (2) Peripheral vascular disease in diabetes mellitus: Code(s): E11.51 - Type 2 diabetes mellitus with diabetic peripheral angiopathy without gangrene Category: Medical Plan: Hemoglobin A1c ordered. Continue glipizide and metformin as ordered, to be adjusted as needed pending results. Continue with improved diabetic diet as well as exercise. Peripheral vascular disease stable. Continue baby aspirin. Continue with annual eye exams (3) Chronic low back pain: Code(s): M54.50 - Low back pain, unspecified; G89.29 - Other chronic pain Category: Medical Plan: Referred to physical therapy, can continue to use Aleve as needed. Proper lifting techniques at work advised (4) Hyperlipidemia: Code(s): E78.5 - Hyperlipidemia, unspecified Category: Medical Plan: Lipid panel ordered. Continue atorvastatin 40 mg daily Plan Follow-up in the office in 3 months, labs to be completed today as well as several days prior to next appointment Orders: Orders PT Evaluation and Treatment Today G89.29 - Other chronic pain, M54.50 - Low back pain, unspecified, M62.830 - Muscle spasm of back LDL Cholesterol Direct Today E11.42 - Type 2 diabetes mellitus with diabetic polyneuropathy, E11.65 - Type 2 diabetes mellitus with hyperglycemia, E78.5 - Hyperlipidemia, unspecified, I10 - Essential (primary) hypertension Complete Blood Count Auto Diff 3 Months D50.9 - Iron deficiency anemia, unspecified, E11.65 - Type 2 diabetes mellitus with hyperglycemia, E78.5 - Hyperlipidemia, unspecified, I10 - Essential (primary) hypertension Hemoglobin A1c 3 Months D50.9 - Iron deficiency anemia, unspecified, E11.65 - Type 2 diabetes mellitus with hyperglycemia, E78.5 - Hyperlipidemia, unspecified, I10 - Essential (primary) hypertension Prostate Specific Antigen 3 Months D50.9 - Iron deficiency anemia, unspecified, E11.65 - Type 2 diabetes mellitus with hyperglycemia, E78.5 - Hyperlipidemia, unspecified, I10 - Essential (primary) hypertension Basic Metabolic Panel 3 Months D50.9 - Iron deficiency anemia, unspecified, E11.65 - Type 2 diabetes mellitus with hyperglycemia, E78.5 - Hyperlipidemia, unspecified, I10 - Essential (primary) hypertension IRON PROFILE 3 Months D50.9 - Iron deficiency anemia, unspecified Medications: New losartan 100 mg PO DAILY 90 tabs 1RF
[2025-03-25 09:36] VITALS: BP 146/80; PULSE 90; RESP 14; TEMP 36.9; O2SAT 98; BMI 28.1
[2025-03-25 09:52] VITALS: BP 136/74
--- OUTSIDE RECORDS SUMMARY | 2025-03-25 10:32 | XMS_ITS | Patient Health Record ---
Author Organization [facility] Address [address] [place] [id number] Care Team Providers Care Content Development Manager Name Role Phone Cleve Michel Unavailable [phone] Reason For Referral No Information Plan Of Treatment No Information
== END 2025-03-25 11:02 | disposition home or self-care (01) ==
LOC: HO.HMCHD 09:06
PROVIDERS: PCP Internal Medicine; Visit Provider Physician Assistant
DX: I10 Essential (primary) hypertension (principal); E11.51 Type 2 diabetes mellitus with diabetic peripheral angiopathy without gangrene; M54.50 Low back pain, unspecified; G89.29 Other chronic pain; E78.5 Hyperlipidemia, unspecified

== ENCOUNTER 2025-03-25 10:05 | Outpatient (REF) | payer MEDICARE, OTHER, SELFPAY ==
[2025-03-25 11:22] LABS: Total Hemoglobin (HGBA1C) 3677.9071 umol/L
[2025-03-25 11:44] LABS: Microalbum/Creatinine Ratio Ur 13.0 ug/mg cr (<30)
[2025-03-25 12:23] LABS: Anion Gap 13 (12-20); Blood Urea Nitrogen 14 mg/dL (9-16); Calcium 9.6 mg/dL (8.4-10.2); Carbon Dioxide 26 mmol/L (22-29); Chloride 102 mmol/L (96-108); Cholesterol 109 mg/dL (<200); Estimated Glomerular Filt Rate > 60; HDL Cholesterol 34 mg/dL (>40); Potassium 4.1 mmol/L (3.3-5.1); Sodium 137 mmol/L (135-145); Triglycerides 198 mg/dL (<150)
== END 2025-03-25 10:06 | disposition home or self-care (01) ==
LOC: HO.10HDL 10:05
PROVIDERS: Visit Provider Physician Assistant
DX: I10 Essential (primary) hypertension (principal); E78.5 Hyperlipidemia, unspecified; E11.65 Type 2 diabetes mellitus with hyperglycemia; E11.42 Type 2 diabetes mellitus with diabetic polyneuropathy; E11.51 Type 2 diabetes mellitus with diabetic peripheral angiopathy without gangrene; M54.50 Low back pain, unspecified; G89.29 Other chronic pain; Z79.82 Long term (current) use of aspirin; Z79.84 Long term (current) use of oral hypoglycemic drugs; Z79.899 Other long term (current) drug therapy
CPT/HCPCS: 36415; 80048; 80061; 82043; 82570; 83036; 83721; 99212

== ENCOUNTER 2025-05-09 08:55 | Outpatient (AMB) | payer MEDICARE, OTHER, SELFPAY ==
--- NOTE | 2025-05-09 09:09 | MHC.OFFVIS ---
Vital Signs 05/09/25 09:10 Height 5 ft 10 in Weight 194 lb 0.108 oz BMI 27.8 BP 138/80 Blood Pressure Location Rt brachial Position Sitting Pulse 96 Pulse Source Pulse Oximeter Pulse Oximetry (%) 98 Oxygen Delivery Method Room Air Intake Visit Reasons: Type 2 diabetes mellitus with hyperglycemia Intake Note: NEW Patient presents today to establish treatment for Type 2 Diabetes Mellitus: Last Diabetic eye exam was on: Patient will call to make an appt Last Podiatry exam was on: Patient does not see a Pipelayer Most recent HbA1c: 8.0%, 03/25/2025 Random Glucose: 170 mg/dL Nuclear Chemistry Technician Required: No Accompanied by: Self / Same As Patient Allergies Iodinated Contrast Media (IV Dye, Iodine Containing) Adverse Reaction (Mild, Verified 03/25/25 09:31) FELT WOOZY ,HAD PROHANCE INJECTION HPI Comments Details: 64 years old male with past medical history of type 2 diabetes, diabetic polyneuropathy, PVD, hypertension, hyperlipidemia, seen in the office for evaluation of uncontrolled type 2 diabetes. Diagnosed 3 years ago (2021) Current medication: glipizide ER 10mg/day, Jardiance 25mg/day and Meftormin 1000mg BID. Glipizide and Jardiance added on December 2024 Previous medication: Metformin 1000mg BID. Blood sugar: Interpretation: Blood sugars only measured in the mornings, unclear if the patient have postprandial hyperglycemia, but the number seen in the morning are appropriate. Hypoglycemia: No Macrovascular complications: Has PVD, No CVA, NM Microvascular complications: Has polyneuropathy, No Know Retinopathy, Nephropathy, Diet: B- cornbeef hash, rice, tost, orange juice and cramberry juice L- sandwich, roasted turkey, roasted beef, noodle D- very variable, is usually the smallest of the 3 meals Snacks: intermittent Used to drink regular soda, and Brisk tea. 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 CV: Regular heart rate and rhythm. Peripheral pulses, edema. Resp: Lungs clear to auscultation bilaterally Abdomen: Soft, nontender. nondistended. Insulin injection/pump site: Extremities/Neuro: No weakness or edema. Monofilament exam: decreased sensation in plantar area (near toes), absent sensation in toes bilaterally. Amputation of left forearm. Diabetic Foot Exam: Ulcers, wounds, calluses, deformities. Laboratory Tests 11/08/22 07/11/24 03/25/25 08:50 12:29 10:10 Creatinine 0.85 0.79 Estimated GFR > 60 > 60 Random Glucose 268 H 257 H Hemoglobin A1c % 8.5 H 8.0 H Calcium 10.1 D 9.6 Triglycerides 198 H Cholesterol 109 LDL Cholesterol Direct 59 LDL Cholesterol, Calc 36 HDL Cholesterol 34 L Microalb/Creat Ratio 25.8 13.0 PFSH Medical History (Updated 03/25/25 @ 10:07 by RANCHO Gomez) LUPE (acute kidney injury) Chronic low back pain Squamous cell carcinoma (SCC) of lower eyelid of left eye Diabetic polyneuropathy Gout Iron deficiency anemia Congenital defect History of diverticulitis Peripheral vascular disease in diabetes mellitus Type 2 diabetes mellitus Hyperlipidemia Hypertension Surgical History History of colonoscopy (~03/20/24) Family History Father Heart disease Mother Skin cancer Social History Housing: House Patient Tobacco Use Status: Never used Tobacco e-Cigarette/Vaping Use: Never Used service: No Current occupational status: employed and retired Current occupational exposures/hazards: No Cognitive needs: No Hearing needs: No Vision needs: No Physical Exam Vital Signs: Last Vital Signs Pulse 96 05/09/25 09:10 BP 138/80 05/09/25 09:10 Pulse Ox 98 05/09/25 09:10 Oxygen Delivery Method Room Air 05/09/25 09:10 BMI result Body Mass Index 27.8 Office Procedures Glucose Monitoring Details Details: See HPI 37020 - Continuous Glucose Monitoring, patient provides equipment Procedure code (CPT) selection complete Results Reviewed Results Reviewed: Laboratory Last Values Glucose (Clinic) 170 mg/dL (60-115) H 05/09/25 09:18 Assessment & Plan Assessment & Plan (1) Type 2 diabetes mellitus: Code(s): E11.9 - Type 2 diabetes mellitus without complications Category: Medical Qualifiers: Diabetes mellitus skilled nursing insulin use: without ferry terminal supervisor use Diabetes mellitus complication status: with hyperglycemia Qualified Code(s): E11.65 - Type 2 diabetes mellitus with hyperglycemia Plan: 64 years old male with past medical history of type 2 diabetes, diabetic polyneuropathy, PVD, hypertension, hyperlipidemia, seen in the office for evaluation of uncontrolled type 2 diabetes. Given some improvement in A1c from Jul to March, specially considering that Jardiance and glipizide with added in December, and the patient is change in his dietary habits, it is not completely unreasonable to stay the course and re-evaluate in 3 months. Other alternatives include the addition of GLP 1, which would be favoring this case as he has lower risk of hypoglycemia, compared to the next alternative would be adding Lantus, but this will increase the risk of hypoglycemia in this patient, and starting at a lower end would be necessary. At this point patient decided to wait for the next appointment and at that time that we decide what they want to start Lantus or a GLP 1. Plan Continue glipizide ER 10 mg daily Continue metformin 1000 mg b.i.d. Continue Jardiance 25 mg daily Advised the patient to check his blood sugars 3-4 times per day, at bedtime and prior to every meal Encouraged the patient to decrease simple carbs intake, and use more proteins. Patient refused to see diabetes education Patient referred to ophthalmology and podiatry for evaluation Follow-up in 3 months Plan 45 minutes spent reviewing previous records, labs, imaging, education and documenting in the chart Orders: Orders AMB Glucose Monitoring Today E11.65 - Type 2 diabetes mellitus with hyperglycemia Referrals Podiatry Referral E11.65 - Type 2 diabetes mellitus with hyperglycemia Ophthalmology Referral E11.65 - Type 2 diabetes mellitus with hyperglycemia Coding Level of Care Code New Pt Level 4 (56696) Diagnoses Type 2 diabetes mellitus with hyperglycemia, without long-term current use of insulin E11.65 Diabetes mellitus ferry terminal supervisor insulin use: without ferry terminal supervisor use Diabetes mellitus complication status: with hyperglycemia CPT Codes Details - CPT: 74916 - Continuous Glucose Monitoring, patient provides equipment ([id number])
[2025-05-09 09:10] VITALS: BP 138/80; PULSE 96; O2SAT 98; BMI 27.8
[2025-05-09 09:23] LABS: Glucose, Whole Blood 170 mg/dL (60-115)
== END 2025-05-09 09:50 | disposition home or self-care (01) ==
LOC: HO.ENCR 08:56
PROVIDERS: PCP Internal Medicine; Visit Provider Student in an Organized Health Care Education/Training Program
DX: E11.65 Type 2 diabetes mellitus with hyperglycemia (principal)
CPT/HCPCS: 99204

== ENCOUNTER → 2025-05-09 08:55 | Outpatient (BNVA) | payer MEDICARE, OTHER, SELFPAY | PROVIDERS: PCP Internal Medicine; Visit Provider Student in an Organized Health Care Education/Training Program | DX: E11.65 Type 2 diabetes mellitus with hyperglycemia (principal) | CPT/HCPCS: 82947; 95249; 99202 ==

== ENCOUNTER 2025-06-04 07:53 | Outpatient (AMB) | payer MEDICARE, OTHER, SELFPAY ==
[2025-06-04 08:13] VITALS: BMI 27.8
--- NOTE | 2025-06-04 08:13 | A.OFFVIS_ITS ---
Vital Signs 06/04/25 08:13 Height 5 ft 10 in Weight 194 lb BMI 27.8 Intake Visit Reasons: Type 2 diabetes mellitus with hyperglycemia Intake Note: Cleve is a 64 year old male who presents today as a new patient for a diabetic foot exam. Pt reports his glucose was 108 as of yesterday and his last A1c was 8.0 as of 03/25/25. He experiences numbness and tingling in his feet with a burning sensation on the top of his right foot. Patient has back pain with out injury and he was diagnosed with degenerative disc disease and has had three micro-discectomy surgeries of the back. 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 Allergies lisinopril Allergy (Verified 06/04/25 08:14) Angioedema Iodinated Contrast Media (IV Dye, Iodine Containing) Adverse Reaction (Mild, Verified 03/25/25 09:31) FELT WOOZY ,HAD PROHANCE INJECTION HPI Comments Details: The patient is a 64 year old individual with a past medical history as seen below presenting for a diabetic foot exam. The patient has experienced numbness in the toes for years, which has not progressed up the legs. Over the last one to two months, the patient developed new-onset pain in the left foot, described as a sharp pain in the toes rated 7-8/10 that lasts for 30-60 seconds before easing, and a burning sensation in the right foot. The patient was diagnosed with diabetes three years ago following a surgery. An episode of syncope in December, attributed to heat exhaustion, led to a two-night hospitalization where elevated blood sugar was discovered. The patient's medication regimen was changed from 4 tablets of metformin, which caused diar eunice, to a combination of two metformin, one glipizide, and, more recently, Jardiance, which has been taken for about two months and causes increased urination. In conjunction with medication, the patient has made significant dietary changes, including eliminating sugary beverages like coffee with sugar, iced tea, and soda, switching to a zero-sugar alternative. The patient began home blood glucose monitoring in the summer, with recent readings being as high as 120 mg/dL and a recent reading of 108 mg/dL. The patient reports a history of plantar fasciitis and has been using Aetrex inserts in hiking shoes and custom footbeds in ski boots for years. 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 There is a history of a nail fungus on the right great toe which the patient reports is growing out. The patient reports no recent injuries to the feet. He denies any other pedal concerns. [facility] Medical History LUPE (acute kidney injury) Chronic low back pain Squamous cell carcinoma (SCC) of lower eyelid of left eye Diabetic polyneuropathy Gout Iron deficiency anemia Congenital defect History of diverticulitis Peripheral vascular disease in diabetes mellitus Type 2 diabetes mellitus Hyperlipidemia Hypertension Surgical History History of colonoscopy (~03/20/24) Family History Father Heart disease Mother Skin cancer Social History Housing: House Patient Tobacco Use Status: Never used Tobacco e-Cigarette/Vaping Use: Never Used service: No Current occupational status: employed and retired Current occupational exposures/hazards: No Cognitive needs: No Hearing needs: No Vision needs: No Review of Systems Const Details: - Neurological: Reports chronic numbness in toes bilaterally. Reports intermittent, sharp pain in the left foot and a burning sensation in the right foot for the last 1-2 months. - Musculoskeletal: Reports generalized arthritis. - Constitutional: Reports a past episode of syncope attributed to heat exhaustion. Reports feeling generally well at present. - Genitourinary: Reports polyuria since starting Jardiance. All systems reviewed & are unremarkable except as noted in HPI and below Physical Exam Vital Signs: BMI result Body Mass Index 27.8 Extrem Other: Bilateral lower extremity focused physical exam: Derm: No open lesions abrasions or wounds noted. No hyperkeratotic or mac erated areas noted. Toenails x10 noted to be slightly thickened but of normal length. Discoloration noted to the right hallucal nail. No ecchymosis, erythema, or discoloration noted. No clinical signs of infection noted. Vascular: DP/PT pulses mildly palpable. Capillary refill time less than 3 seconds. Temperature gradient warm to warm. Varicosities noted. No edema noted. Neuro: Protective sensation is grossly intact to light touch, but diminished to monofilament testing. MSK: No pain on palpation to the forefoot, hindfoot, and ankles. Range of motion of the forefoot, hindfoot and ankles within normal limits. No crepitus or fluctuance noted. Hammertoe deformities noted bilaterally. Pes planus noted, worse to the right. Nonantalgic gait unassisted noted. Office Procedures Diabetic Foot Exam G9226 - Diabetic Foot Exam Results Reviewed Results Reviewed: Laboratory Tests 03/25/25 05/09/25 10:10 09:18 Glucose (Clinic) 170 H Hemoglobin A1c % 8.0 H Ordered labs to be obtained prior to next visit. Assessment & Plan Assessment & Plan (1) Type 2 diabetes mellitus: Code(s): E11.9 - Type 2 diabetes mellitus without complications Category: Medical Qualifiers: Diabetes mellitus complication status: with hyperglycemia Diabetes mellitus truck terminal manager insulin use: without senior living use Qualified Code(s): E11.65 - Type 2 diabetes mellitus with hyperglycemia (2) Diabetic polyneuropathy: Code(s): E11.42 - Type 2 diabetes mellitus with diabetic polyneuropathy Category: Medical (3) Peripheral vascular disease in diabetes mellitus: Code(s): E11.51 - Type 2 diabetes mellitus with diabetic peripheral angiopathy without gangrene Category: Medical Plan Patient was informed and verbally consented to the use of an ambient scribe for clinic note documentation during this visit. Educated patient on diabetes in the affects on the lower extremities. I discussed with the patient that the numbness and tingling in the feet are sy mptoms of diabetic neuropathy, which can be caused by diabetes. We reviewed the results of the monofilament exam, which confirmed diminished protective sensation. I emphasized the importance of daily foot checks to monitor for wounds, as diabetes can impair the healing process. We noted that the onychomycosis on the right great toe appears to be growing out, and we will continue to monitor it. A follow-up visit in six months was recommended, and I instructed the patient to call sooner if any issues arise or if assistance with nail care is needed. - Ordered labs to be obtained prior to next visit. - The patient will continue with current diabetes management as per PCP, including medications and dietary modifications, which have led to improved glycemic control. - Instructed the patient to continue good foot hygiene, including thoroughly drying between the toes after showering to prevent skin maceration. - The patient will continue to wear supportive shoes and orthotic inserts to maintain foot structure and health. - The resolving onychomycosis of the right great toe will be monitored. - The patient does not require assistance with nail care at this time and will continue to self-trim. - The patient will follow up in six months for a routine diabetic foot check. - Advised patient to avoid barefoot walking and to wear supportive shoe gear. - The patient was advised to call and schedule an earlier appointment if any issues arise or if assistance with nail care is needed. RTC in 6 months. Orders: Orders Complete Blood Count Auto Diff 06/04/25 E11.42 - Type 2 diabetes mellitus with diabetic polyneuropathy, E11.65 - Type 2 diabetes mellitus with hyperglycemia Comprehensive Met. Panel 06/04/25 E11.42 - Type 2 diabetes mellitus with diabetic polyneuropathy, E11.65 - Type 2 diabetes mellitus with hyperglycemia Hemoglobin A1c 06/04/25 E11.42 - Type 2 diabetes mellitus with diabetic polyneuropathy, E11.65 - Type 2 diabetes mellitus with hyperglycemia AMB Diabetic Foot Exam 06/04/25 E11.42 - Type 2 diabetes mellitus with diabetic polyneuropathy, E11.51 - Type 2 diabetes mellitus with diabetic peripheral angiopathy without gangrene, E11.65 - Type 2 diabetes mellitus with hyperglycem ia Coding Level of Care Code New Pt Level 4 (56623) Diagnoses Type 2 diabetes mellitus with hyperglycemia, without long-term current use of insulin E11.65 Diabetes mellitus complication status: with hyperglycemia Diabetes mellitus truck terminal manager insulin use: without truck terminal manager use Diabetic polyneuropathy E11.42 Peripheral vascular disease in diabetes mellitus E11.51 CPT Codes Diabetic Foot Exam - CPT: G9226 - Diabetic Foot Exam ([id number]) Time Spent (min) 45
== END 2025-06-04 08:35 | disposition home or self-care (01) ==
LOC: HO.HPODS 07:53
PROVIDERS: PCP Internal Medicine; Visit Provider Student in an Organized Health Care Education/Training Program
DX: E11.65 Type 2 diabetes mellitus with hyperglycemia (principal); E11.42 Type 2 diabetes mellitus with diabetic polyneuropathy; E11.51 Type 2 diabetes mellitus with diabetic peripheral angiopathy without gangrene
CPT/HCPCS: 99204; G9226

== ENCOUNTER → 2025-06-04 07:53 | Outpatient (BNVA) | payer MEDICARE, OTHER, SELFPAY | PROVIDERS: PCP Internal Medicine; Visit Provider Student in an Organized Health Care Education/Training Program | DX: E11.65 Type 2 diabetes mellitus with hyperglycemia (principal); E11.42 Type 2 diabetes mellitus with diabetic polyneuropathy; E11.51 Type 2 diabetes mellitus with diabetic peripheral angiopathy without gangrene | CPT/HCPCS: 99202 ==